=== PATIENT | male | born 1960 | race Caucasian/White ===

== ENCOUNTER 2018-09-01 00:45 | Emergency (ER) | payer OTHER ==
--- NOTE | 2018-09-01 02:51 | ER Document Report ---
ED Cardiac - General Chief Complaint: Chest Pain Stated Complaint: CHEST PAIN Time Seen by Provider: 09/01/18 02:50 Primary Care Provider: ALIRIO ROMAN MD [Primary Care Provider] - Follow up as needed Mode of Arrival: Ambulatory Information source: Patient, Relative Notes: Patient is a 57-year-old male with a past medical history of alcohol abuse who presents with confusion and memory loss. Patient denies head injury, no recent falls, no drug use. Patient reports drinking at least 2-3 bottles of wine every day, has been doing this for at least 5 years. After questioning, the patient's at bedside reports the patient has been having intermittent problems with his memory for the past several weeks but never has been this bad. Otherwise patient feels fine without current complaints. Onset: Sudden Provocation: None Quality: Confusion Radiation: None Severity: Mild Timing: Constant TRAVEL OUTSIDE OF THE [place] IN LAST 30 DAYS: No - HPI Similar symptoms previously: No Recently seen / treated by doctor: No - Related Data Allergies/Adverse Reactions: No Known Allergies Allergy (Unverified 09/01/18 06:02) Past Medical History - General Information source: Patient, Relative - Social History Smoking Status: Never Smoker Chew tobacco use (# tins/day): No Frequency of alcohol use: None Drug Abuse: None Lives with: Family Family History: Reviewed & Not Pertinent Patient has suicidal ideation: No Patient has homicidal ideation: No - Past Medical History Cardiac Medical History: Reports: None Pulmonary Medical History: Reports: None EENT Medical History: Reports: None Neurological Medical History: Reports: None Endocrine Medical History: Reports: None Renal/ Medical History: Reports: None Malignancy Medical History: Reports None GI Medical History: Reports: None Musculoskeletal Medical History: Reports None Skin Medical History: Reports None Psychiatric Medical History: Reports: None Traumatic Medical History: Reports: None Infectious Medical History: Reports: None Surgical Hx: Negative Past Surgical History: Reports: None - Immunizations Immunizations up to date: Yes Hx Diphtheria, Pertussis, Tetanus Vaccination: Yes Review of Systems - Review of Systems Notes: REVIEW OF SYSTEMS: CONSTITUTIONAL : Denies fever, chills, or sweats. Denies recent illness. EENT: Denies eye, ear, throat, or mouth pain or symptoms. Denies nasal or sinus congestion. CARDIOVASCULAR: Denies chest pain. RESPIRATORY: Denies cough, cold, or chest congestion. Denies shortness of breath, difficulty breathing, or wheezing. GASTROINTESTINAL: Denies abdominal pain. Denies nausea, vomiting, or diarrhea. Denies constipation. GENITOURINARY: Denies difficulty urinating, painful urination, burning, frequency, or blood in urine. FEMALE GENITOURINARY: Denies vaginal bleeding, abnormal or irregular periods. MUSCULOSKELETAL: Denies neck or back pain or joint pain or swelling. SKIN: Denies rash or skin lesions. HEMATOLOGIC : Denies easy bruising or bleeding. LYMPHATIC: Denies swollen, enlarged glands. NEUROLOGICAL: Denies altered mental status or loss of consciousness. Denies headache. Denies weakness or paralysis or loss of use of either side. Denies problems with gait or speech. Denies sensory or motor loss. PSYCHIATRIC: Denies anxiety or stress or depression. ALL OTHER SYSTEMS REVIEWED AND NEGATIVE. Physical Exam - Vital signs Vitals: Temp Pulse Resp BP Pulse Ox 98.1 F 114 H 18 151/08 H 95 09/01/18 01:27 09/01/18 01:27 09/01/18 01:27 09/01/18 01:27 09/01/18 01:27 - Notes Notes: PHYSICAL EXAMINATION: GENERAL: Well-appearing, well-nourished and in no acute distress. HEAD: Atraumatic, normocephalic. EYES: Pupils equal round and reactive to light, extraocular movements intact, sclera anicteric, conjunctiva are normal. ENT: nares patent, oropharynx clear without exudates. Moist mucous membranes. NECK: Normal range of motion, supple without lymphadenopathy LUNGS: Breath sounds clear to auscultation bilaterally and equal. No wheezes rales or rhonchi. HEART: Regular rate and rhythm without murmurs ABDOMEN: Soft, nontender, normoactive bowel sounds. No guarding, no rebound. No masses appreciated. EXTREMITIES: Normal range of motion, no pitting or edema. No cyanosis. NEUROLOGICAL: No focal neurological deficits. Moves all extremities spontaneously and on command. PSYCH: Normal mood, normal affect. SKIN: Warm, Dry, normal turgor, no rashes or lesions noted. Course - Re-evaluation Re-evalutation: 09/01/18 06:34 Labs as far shows mildly elevated creatinine which could represent dehydration in the setting of chronic alcoholism. Question whether the patient is having retrograde amnesia secondary to thiamine deficiency from his chronic alcohol abuse. However, the patient's does state the patient has been having intermittent issues with memory loss for the past several weeks and months which could be early onset dementia. Head CT is normal. Urine and drug screen are still pending. Patient has already been given IV thiamine as well as magnesium. 09/01/18 07:02 Urine is positive for microscopic hematuria, negative drug screen. Patient does report feeling improved after the magnesium and thiamine as well as the IV fluids. Patient was counseled to follow-up with a neurologist and to decrease his drinking. He will be discharged home with return precautions and follow-up. Patient and his voiced understanding and agreeing with the plan. - Vital Signs Vital signs: Temp Pulse Resp BP Pulse Ox 98.1 F 114 H 15 134/97 H 96 09/01/18 02:23 09/01/18 01:27 09/01/18 06:01 09/01/18 06:01 09/01/18 06:01 - Laboratory Result Diagrams: 09/01/18 02:55 09/01/18 02:55 Laboratory results interpreted by me: 09/01/18 09/01/18 09/01/18 02:55 02:55 03:07 Hgb 17.3 H MCH 34.2 H Seg Neutrophils % 78.5 H Sodium 134.2 L Potassium 5.2 H Chloride 92 L BUN 22 H Creatinine 1.68 H Est GFR ( Amer) 51 L Est GFR (Non-Af Amer) 42 L Glucose 150 H Direct Bilirubin 0.5 H AST 118 H ALT 139 H Ammonia < 8.7 L Urine Protein Urine Blood Urine Urobilinogen 09/01/18 06:10 Hgb MCH Seg Neutrophils % Sodium Potassium Chloride BUN Creatinine Est GFR ( Amer) Est GFR (Non-Af Amer) Glucose Direct Bilirubin AST ALT Ammonia Urine Protein 100 H Urine Blood LARGE H Urine Urobilinogen 4.0 H - Diagnostic Test Radiology reviewed: Image reviewed, Reports reviewed - EKG Interpretation by Me EKG shows normal: Sinus rhythm Rate: Normal Rhythm: NSR [place]/QRS: No: Right axis deviation, Left axis deviation, RBBB, LBBB, IVCD, LAHB/LAFB, LPHB/LPFB, Bifasicular block Voltage: No: Increased voltage, Consistant with LVH, Decreased voltage, Throughout, Limb leads P Waves: No: NASIMA, LAE, Absent, AV Dissociation, Other When compared to previous EKG there are: Previous EKG unavailable Discharge - Discharge Clinical Impression: Dehydration, Chronic alcoholism Condition: Good Disposition: HOME, SELF-CARE Instructions: Chronic Alcoholism ([facility]) Additional Instructions: You have been evaluated in the Emergency Department for memory changes as well as confusion and chronic alcoholism. Please follow-up with your primary physician and a neurologist as instructed in 1 week. Return to the Emergency Department if you experience vision changes, gait instability, shaking of the extremities, or any other concerning symptoms. Prescriptions: Ondansetron [Zofran Odt 4 mg Tablet] 1 tab PO Q8H PRN #30 tab.rapdis PRN Reason: For Nausea/Vomiting Vit B Complex No.10/Folic Acid [B-Complex 100 Tablet SA] 400 mcg PO DAILY #30 tablet.sa Referrals: ALIRIO ROMAN MD [Primary Care Provider] - Follow up as needed BETH AGUILAR MD [NO LOCAL MD] - Follow up as needed Print Language: Macedonian
[2018-09-01] MEDS ORDERED: THIAMINE HCL 100 MG in NORMAL SALINE 50 ML IV ONE (03:48)
[2018-09-01] MEDS ORDERED: NORMAL SALINE 1000 ML 1,000 ML with POTASSIUM CHLORIDE 20 MEQ, MAGNESIUM SULFATE 8 MEQ,... IV ONE ×5 (03:51)
[2018-09-01 04:00] LABS: ABSOLUTE MONOCYTES (AUTO) 0.4 10^3/uL (0.1-1.4); ABSOLUTE NEUT (AUTO) 5.2 10^3/uL (1.7-8.2); BASOPHILS % (AUTO) 0.4 % (0-2); EOSINOPHILS % (AUTO) 0.2 % (0-6); HEMATOCRIT 48.8 % (37.9-51.0); HEMOGLOBIN 17.3 g/dL (13.5-17.0); LYMPHOCYTES % (AUTO) 15.1 % (13-45); MEAN CORPUSCULAR HEMOGLOBIN 34.2 pg (27.0-33.4); MEAN CORPUSCULAR HGB CONC 35.4 g/dL (32.0-36.0); MEAN CORPUSCULAR VOLUME 97 fl (80-97); MONOCYTES % (AUTO) 5.8 % (3-13); PLATELET COUNT 312 10^3/uL (150-450); RED BLOOD COUNT 5.05 10^6/uL (4.35-5.55); SEGMENTED NEUTROPHILS % (AUTO) 78.5 % (42-78); TOTAL CELLS COUNTED % (AUTO) 100 %; WHITE BLOOD COUNT 6.6 10^3/uL (4.0-10.5)
[2018-09-01 04:01] LABS: INTERNATIONAL RATION (INR) 0.97; PROTHROMBIN TIME 13.3 SEC (11.4-15.4)
[2018-09-01 04:12] LABS: ALANINE AMINOTRANSFERASE 139 U/L (21-72); ALBUMIN 4.9 g/dL (3.5-5.0); ALKALINE PHOSPHATASE 109 U/L (38-126); ANION GAP 13 (5-19); ASPARTATE AMINO TRANSFERASE 118 U/L (17-59); BILIRUBIN,DIRECT 0.5 mg/dL (0.0-0.4); BILIRUBIN,TOTAL 1.3 mg/dL (0.2-1.3); BLOOD UREA NITROGEN 22 mg/dL (7-20); CALCIUM 9.6 mg/dL (8.4-10.2); CARBON DIOXIDE 29 mmol/L (22-30); CHLORIDE 92 mmol/L (98-107); GLUCOSE 150 mg/dL (75-110); LIPASE 141.3 U/L (23-300); POTASSIUM 5.2 mmol/L (3.6-5.0); SODIUM 134.2 mmol/L (137-145); TOTAL PROTEIN 7.7 g/dL (6.3-8.2)
[2018-09-01 04:14] LABS: ALCOHOL < 10 mg/dL (NONE DETECTED)
[2018-09-01 04:20] LABS: NT PRO BNP 93 pg/mL (5-900)
[2018-09-01 04:22] LABS: TROPONIN I < 0.012 ng/mL
--- NOTE | 2018-09-01 04:33 | RADIOLOGY REPORT (SQ) ---
EXAM DESCRIPTION: CT HEAD WITHOUT IV CONTRAST COMPLETED DATE/TME: 09/01/2018 03:48 CLINICAL HISTORY: Altered mental status COMPARISON: None Available. Technique: Contiguous axial images of the brain were obtained without the administration of intravenous contrast. Coronal and sagittal reformats obtained and reviewed. This exam was performed according to our departmental dose-optimization program which includes use of Automated Exposure Control, adjustment of the mA and/or kV according to patient size and/or use of iterative reconstruction technique. Findings: Brain: No hemorrhage. No territorial infarct. No mass effect. No herniation. Ventricles: Within normal limits for patient's age. Bones: No acute osseous abnormality. Old appearing left inferior orbital wall fracture. Paranasal sinuses: Mucosal thickening and mucous retention cyst in the left maxillary sinus. Mastoid air cells: Unremarkable. Soft tissues: No acute abnormality. IMPRESSION: No acute intracranial abnormalities.
[2018-09-01] MEDS ORDERED: MAGNESIUM SULFATE/D5W 1 GM/100 ML RTUPB IV ONE (05:07)
[2018-09-01] MEDS ORDERED: THIAMINE HCL INJ 200 MG/2 ML VIAL ONE (06:17)
[2018-09-01 06:38] LABS: APPEARANCE,URINE CLEAR; BILIRUBIN,URINE NEGATIVE (NEGATIVE); COLOR,URINE YELLOW; GLUCOSE, URINE NEGATIVE (NEGATIVE); KETONES,URINE NEGATIVE (NEGATIVE); LEUKOCYTE ESTERASE,URINE NEGATIVE (NEGATIVE); NITRITE,URINE NEGATIVE (NEGATIVE); PROTEIN,URINE 100 mg/dL (NEGATIVE); URINE SPECIFIC GRAVITY 1.017
[2018-09-01 06:49] LABS: URINE AMPHETAMINES SCREEN NEGATIVE; URINE BARBITURATES SCREEN NEGATIVE; URINE BENZODIAZEPINES SCREEN NEGATIVE; URINE COCAINE SCREEN NEGATIVE; URINE MARIJUANA (THC) SCREEN NEGATIVE; URINE METHADONE SCREEN NEGATIVE; URINE PHENCYCLIDINE SCREEN NEGATIVE
[2018-09-01 07:20] VITALS: BP 146/96
--- NOTE | 2018-09-01 08:00 | EKG REPORT ---
SEVERITY:- NORMAL ECG - SINUS RHYTHM : Confirmed by: Erna Rausch MD 01-Sep-2018 07:59:16
== END 2018-09-01 07:20 | disposition home or self-care (01) ==
LOC: ER 00:45
DX: E86.0 Dehydration (principal); F10.20 Alcohol dependence, uncomplicated; R41.0 Disorientation, unspecified; R07.9 Chest pain, unspecified; R31.29 Other microscopic hematuria
CPT/HCPCS: 93005; 99285; 96365; 96368; 36415; 80307 ×2; 82140; 83690; 85025; 85610; 80053; 81001; 84484; 83880; 70450; 93010; J3475; J3411